=== PATIENT | female | born 1960 | race Caucasian/White ===

== ENCOUNTER 2017-07-30 11:06 | Emergency (ER) | payer BC ==
[~2017-07-30] VITALS: Ht 157.5 cm; Wt 79.9 kg
[2017-07-30 11:18] VITALS: TEMP 36.7; Ht 157.5 cm; Wt 79.9 kg
[2017-07-30] MEDS ORDERED: KETOROLAC TROMETHAMINE 30 MG/ML VIAL IV STA (11:37)
[2017-07-30 12:05] VITALS: O2SAT 98
--- NOTE | 2017-07-30 12:16 | DIAGNOSTIC IMAGING REPORT ---
CHEST ONE VIEW PORTABLE HISTORY: Atypical CHEST PAIN COMPARISON: Chest 08/22/2008. FINDINGS: Increased markings at the lung bases may represent vascular crowding from the low lung volumes. Otherwise, the lungs are clear. The heart is normal in size. No pleural effusions. No pneumothorax. IMPRESSION: No acute process. Electronically signed by: Shawn Julian M.D. 07/30/2017 12:14 PM Dictated Date/Time: 07/30/2017 12:13 PM
--- NOTE | 2017-07-30 12:25 | EMERGENCY ROOM VISIT NOTE ---
History Report prepared by Atilio: Km Yun Under the Supervision of: Dr. Rashaun Tobias M.D. First contact with patient: 11:33 Chief Complaint: CHEST PAIN Stated Complaint: LEFT SIDE PAIN Nursing Triage Summary: Pt presents with daughter who is translating. Pain in chest, left shoulder, neck with sob that started yesterday. Denies n/v. Generalized weakness. Denies cardiac hx. Pain is constant, but varies in intesity. History of Present Illness The patient is a 57 year old female who presents to the Emergency Room with her daughter who is translating with complaints of constant waxing and waning left sided chest pain that started yesterday afternoon. The patient describes the pain as a pressure, and she has some left shoulder pain and shortness of breath. The daughter states that the pain did not come on with any specific activity. She states that she has had similar problems in the past, though they have never found anything. The last time she had chest pain was two months ago, and it came on with weather changes. The patient took Tylenol this morning, and she states that nothing helps with the pain. The patient denies any cough, congestion, diarrhea, nausea, and vomiting. The patient has a family history of hypertension and cancer. The patient has no history of hypertension, cancer, diabetes, smoking, blood clots, recent stress, depression, and anxiety. There is no family history of early cardiac problems. 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 Source of History: patient, family Onset: yesterday afternoon Position: chest Quality: pressure Timing: constant Associated Symptoms: + SOB, No cough, No nausea, No vomiting, No diarrhea Note: Associated symptoms: Left shoulder pain. Review of Systems See HPI for pertinent positives and negatives. A total of ten systems were reviewed and were otherwise negative. Family History Cancer Hypertension Social History Smoking Status: Never Smoker Marital Status: Housing Status: lives with family Occupation Status: employed Current/Historical Medications Scheduled PRN Ibuprofen Tab (Motrin), 800 MG PO Q8H PRN for Pain Allergies Coded Allergies: No Known Allergies (Verified , 07/30/17) Physical Exam Vital Signs Date Time Temp Pulse Resp B/P (MAP) Pulse Ox O2 Delivery O2 Flow Rate FiO2 07/30/17 14:14 62 16 103/63 98 07/30/17 13:35 52 15 106/72 97 Room Air 1/24/18 12:52 52 12 127/78 98 Room Air 07/30/17 12:11 56 07/30/17 12:05 55 15 132/75 98 Room Air 07/30/17 12:05 98 Room Air 07/30/17 11:18 36.7 58 18 126/79 98 Room Air Physical Exam GENERAL: Awake, alert, anxious-appearing, in no distress HENT: Normocephalic, atraumatic. Oropharynx unremarkable. EYES: Normal conjunctiva. Sclera non-icteric. NECK: Supple. No nuchal rigidity. FROM. No JVD. RESPIRATORY: Clear to auscultation. CARDIAC: Regular rate, normal rhythm. Extremities warm and well perfused. Pulses equal. ABDOMEN: Soft, non-distended. No tenderness to palpation. No rebound or guarding. No masses. RECTAL: Deferred. MUSCULOSKELETAL: Mild reproducible tenderness along the sternum. The back is symmetrical on inspection without obvious abnormality. There is no CVA tenderness to palpation. No joint edema. LOWER EXTREMITIES: Calves are equal size bilaterally and non-tender. No edema. No discoloration. NEURO: Normal sensorium. No sensory or motor deficits noted. SKIN: No rash or jaundice noted. Medical Decision & Procedures ER Provider Diagnostic Interpretation: Radiology results as stated below per my review and radiologist interpretation: CHEST ONE VIEW PORTABLE HISTORY: Atypical CHEST PAIN COMPARISON: Chest 08/22/2008. FINDINGS: Increased markings at the lung bases may represent vascular crowding from the low lung volumes. Otherwise, the lungs are clear. The heart is normal in size. No pleural effusions. No pneumothorax. IMPRESSION: No acute process. Electronically signed by: Shawn Julian M.D. 07/30/2017 12:14 PM Dictated Date/Time: 07/30/2017 12:13 PM Laboratory Results 07/30/17 12:21 Red Blood Count 4.39, Mean Corpuscular Volume 89.1, Mean Corpuscular Hemoglobin 30.5, Mean Corpuscular Hemoglobin Concent 34.3, Mean Platelet Volume 8.5, Neutrophils (%) (Auto) 60.5, Lymphocytes (%) (Auto) 30.3, Monocytes (%) (Auto) 6.4, Eosinophils (%) (Auto) 2.2, Basophils (%) (Auto) 0.5, Neutrophils # (Auto) 4.47, Lymphocytes # (Auto) 2.24, Monocytes # (Auto) 0.47, Eosinophils # (Auto) 0.16, Basophils # (Auto) 0.04 07/30/17 12:21 Test 07/30/17 12:21 White Blood Count 7.39 K/uL (4.8-10.8) Red Blood Count 4.39 M/uL (4.2-5.4) Hemoglobin 13.4 g/dL (12.0-16.0) Hematocrit 39.1 % (37-47) Mean Corpuscular Volume 89.1 fL (80-100) Mean Corpuscular Hemoglobin 30.5 pg (25-34) Mean Corpuscular Hemoglobin Concent 34.3 g/dl (32-36) Platelet Count 263 K/uL (130-400) Mean Platelet Volume 8.5 fL (7.4-10.4) Neutrophils (%) (Auto) 60.5 % Lymphocytes (%) (Auto) 30.3 % Monocytes (%) (Auto) 6.4 % Eosinophils (%) (Auto) 2.2 % Basophils (%) (Auto) 0.5 % Neutrophils # (Auto) 4.47 K/uL (1.4-6.5) Lymphocytes # (Auto) 2.24 K/uL (1.2-3.4) Monocytes # (Auto) 0.47 K/uL (0.11-0.59) Eosinophils # (Auto) 0.16 K/uL (0-0.5) Basophils # (Auto) 0.04 K/uL (0-0.2) RDW Standard Deviation 45.1 fL (36.4-46.3) RDW Coefficient of Variation 13.7 % (11.5-14.5) Immature Granulocyte % (Auto) 0.1 % Immature Granulocyte # (Auto) 0.01 K/uL (0.00-0.02) Anion Gap 7.0 mmol/L (3-11) Est Creatinine Clear Calc Drug Dose 76.0 ml/min Estimated GFR () 95.6 Estimated GFR (Non- 82.5 BUN/Creatinine Ratio 23.6 (10-20) Calcium Level 9.0 mg/dl (8.5-10.1) Total Bilirubin 0.8 mg/dl (0.2-1) Direct Bilirubin 0.2 mg/dl (0-0.2) Aspartate Amino Transf (AST/SGOT) 14 U/L (15-37) Alanine Aminotransferase (ALT/SGPT) 23 U/L (12-78) Alkaline Phosphatase 89 U/L (45-117) Troponin I < 0.015 ng/ml (0-0.045) Total Protein 7.2 gm/dl (6.4-8.2) Albumin 3.5 gm/dl (3.4-5.0) Lipase 176 U/L (73-393) Laboratory results reviewed by me Medications Administered Medications (Trade) Dose Ordered Sig/Fermin Route Start Time Stop Time Status Last Admin Dose Admin Ketorolac Tromethamine (Toradol Inj) 15 mg NOW STAT IV 07/30/17 11:37 07/30/17 11:42 DC 07/30/17 11:50 15 MG ECG Indication: chest pain Rate (beats per minute): 54 Rhythm: sinus bradycardia Findings: no acute ischemic change, other (Normal axis) Change: Patient's EKG interpreted by me ED Course 1133: The patient was evaluated in room C7. A complete history and physical exam was performed. 1340: I reevaluated the patient. Discussed results and discharge instructions: she verbalized understanding and agreement. The patient is ready for discharge. Medical Decision I reviewed the patient's past medical history, medications, and the nursing notes as described above. Differential diagnosis: Etiologies such as cardiac ischemia, aortic dissection, pulmonary embolism, pneumonia, pneumothorax, musculoskeletal, infections, pericarditis, myocarditis , esophageal rupture, gastrointestinal, as well as others were entertained. The patient is a 57 y/o woman who presents to the emergency department with constant CP x 1 week per HPI. On arrival the patient is in NAD, AFVSS. EKG unremarkable. Troponin negative in the setting of constant sx. CXR negative. No tachycardia or hypoxia making PE not likely. Moreover, reproducibility with palpation of CW suggests likely muscular/costochondritis, particularly in the setting of patient's work, which is cleaning houses. Patient did feel some improvement with toradol, which further supports costochondritis. Otherwise, patient's heart score is 1, low risk, and thus sx unlikely to be cardiac. Findings and plan for follow-up reviewed with patient. Patient agreeable and d/c 'd per discharge instructions. Medication Reconcilliation Current Medication List: was personally reviewed by me Blood Pressure Screening Patient's blood pressure: Normal blood pressure Impression Primary Impression: Chest wall pain Additional Impression: Costochondritis Scribe Attestation The scribe's documentation has been prepared under my direction and personally reviewed by me in its entirety. I confirm that the note above accurately reflects all work, treatment, procedures, and medical decision making performed by me. Departure Information Dispostion Home / Self-Care Prescriptions Ibuprofen Tab (MOTRIN) 800 Mg Tab 800 MG PO Q8H Y for Pain, #21 TAB Prov: Rashaun Tobias M.D. 07/30/17 Referrals RV. Felipe MD (PCP) Forms Call Back Authorization, HOME CARE DOCUMENTATION FORM, IMPORTANT VISIT INFORMATION Patient Instructions ED Chest Pain Costochondritis, [facility] Additional Instructions Please follow up with your primary care physician in the next 1-3 days for re- evaluation. Your symptoms are most likely due to muscular chest wall pain/strain. Otherwise, your exam, EKG, chest xray, and lab results did not show signs of an emergent condition at this time. Acetaminophen or ibuprofen for pain and fevers as needed. Drink plenty of fluids to ensure hydration. Return to the emergency department for worsening symptoms as described in the accompanying instructions. Problem Qualifiers
[2017-07-30 12:34] LABS: BASO % 0.5 %; BASO ABS # 0.04 K/uL (0-0.2); EOS % 2.2 %; EOS ABS # 0.16 K/uL (0-0.5); HEMATOCRIT 39.1 % (37-47); HEMOGLOBIN 13.4 g/dL (12.0-16.0); IG# 0.01 K/uL (0.00-0.02); LYMPH % 30.3 %; LYMPH ABS # 2.24 K/uL (1.2-3.4); MEAN CELL VOLUME 89.1 fL (80-100); MEAN CORPUSCULAR HEMOGLOBIN 30.5 pg (25-34); MEAN CORPUSCULAR HGB CONC 34.3 g/dl (32-36); MEAN PLATELET VOLUME 8.5 fL (7.4-10.4); MONO % 6.4 %; MONO ABS # 0.47 K/uL (0.11-0.59); NEUT % 60.5 %; NEUT ABS # 4.47 K/uL (1.4-6.5); PLATELET COUNT 263 K/uL (130-400); RED CELL DISTRIBUTION WIDTH CV 13.7 % (11.5-14.5); RED CELL DISTRIBUTION WIDTH SD 45.1 fL (36.4-46.3); WHITE BLOOD COUNT 7.39 K/uL (4.8-10.8)
[2017-07-30 12:52] LABS: ALBUMIN 3.5 gm/dl (3.4-5.0); ALT/SGPT 23 U/L (12-78); BLOOD UREA NITROGEN 19 mg/dl (7-18); CARBON DIOXIDE 25 mmol/L (21-32); CREATININE 0.79 mg/dl (0.60-1.20); GLUCOSE 88 mg/dl (70-99); LIPASE 176 U/L (73-393); POTASSIUM 3.7 mmol/L (3.5-5.1); SODIUM 140 mmol/L (136-145)
[2017-07-30 12:57] LABS: ALKALINE PHOSPHATASE 89 U/L (45-117); AST/SGOT 14 U/L (15-37); TOTAL PROTEIN 7.2 gm/dl (6.4-8.2)
[2017-07-30] MEDS ORDERED: IBUP-1451 PO (13:57)
[2017-07-30 14:14] VITALS: BP 103/63; PULSE 62; O2SAT 98
== END 2017-07-30 14:15 | disposition home or self-care (01) ==
LOC: C.EDB 11:10 → C.EDC 14:15
DX: M94.0 Chondrocostal junction syndrome [Tietze] (principal); Z82.49 Family history of ischemic heart disease and other diseases of the circulatory system; Z80.9 Family history of malignant neoplasm, unspecified

== ENCOUNTER 2018-08-10 12:41 | Observation (INO) ==
[2018-08-10] MEDS ORDERED: SODIUM CHLORIDE 0.9% 1000ML 1,000 ML IV ONE (13:48)
[2018-08-10] MEDS ORDERED: MoRPHine SULFATE 4 MG/ML 1 ML CARP\\VIAL IV STA (13:48)
[2018-08-10] MEDS ORDERED: ONDANSETRON INJ 2 MG/ML 2 ML VIAL IV STA (13:48)
[2018-08-10 14:03] LABS: Basophils # (auto) 0.01 K/uL (0-0.2); Basophils % (auto) 0.1 %; Hematocrit (blood only) 41.1 % (37-47); Hemoglobin 13.8 g/dL (12.0-16.0); Immature Granulocytes # (auto) 0.04 K/uL (0.00-0.02); Immature Granulocytes % (auto) 0.3 %; Lymphocytes # (auto) 1.04 K/uL (1.2-3.4); Lymphocytes % (auto) 7.9 %; Mean Corpuscular Hgb Conc 33.6 g/dL (32-36); Mean Corpuscular Volume 89.5 fL (80-100); Mean Platelet Volume 8.9 fL (7.4-10.4); Monocytes # (auto) 0.22 K/uL (0.11-0.59); Monocytes % (auto) 1.7 %; Neutrophils # (auto) 11.79 K/uL (1.4-6.5); Platelet Count 325 K/uL (130-400); RDW Coefficient of Variation 13.6 % (11.5-14.5); RDW Standard Deviation 44.6 fL (36.4-46.3); Red Blood Count 4.59 M/uL (4.2-5.4)
[2018-08-10 14:14] LABS: Albumin Level 4.2 gm/dl (3.4-5.0); BUN Creatinine Ratio 37.3 (10-20); Calcium 9.4 mg/dl (8.5-10.1); Est GFR (African American) 99.5; Est GFR (Non-African American) 85.9; Potassium 3.5 mmol/L (3.5-5.1)
[2018-08-10 14:15] LABS: Bilirubin,Total 0.8 mg/dl (0.2-1); Globulin 4.2 gm/dl (2.5-4.0); Total Protein 8.4 gm/dl (6.4-8.2)
--- NOTE | 2018-08-10 14:15 | XRay Report ---
KUB CLINICAL HISTORY: Generalized abdominal pain. Nausea and vomiting. FINDINGS: 2 AP supine abdominal radiographs are correlated with abdominal CT dated 09/13/2008. There i s a nonobstructed abdominal bowel gas pattern. Moderate colonic fecal retention is observed. No evide nce of intraperitoneal free air is seen. There are no abnormal abdominal calcifications. A small phle bolith is noted in the pelvis. The bony structures appear intact. IMPRESSION: Nonobstructed abdominal bowel gas pattern noting moderate constipation. Electronically signed by: Vj Mishra M.D. 08/10/2018 2:14 PM
[2018-08-10 14:46] LABS: Appearance Urine Turbid (Clear); Bacteria Urine Automated Negative (Negative); Bilirubin Urine Negative (Negative); Color Urine Dark Yellow; Glucose Urine UA Negative (Negative); Ketones Urine 2+ (Negative); Leukocyte Esterase Urine Negative (Negative); Nitrite Urine Negative (Negative); Protein Urine Negative (Negative); Specific Gravity Urine 1.034 (1.000-1.030); Urobilinogen Urine Negative (Negative); WBC Urine Automated 0 /hpf (0-5)
--- NOTE | 2018-08-10 14:50 | Emergency Department Note ---
History of Present Illness General Chief complaint: Abdominal Pain Stated complaint: SHARP PAIN IN STOMACH, VOMITING Time Seen by Provider: 08/10/18 13:38 History of Present Illness Maximum Pain Intensity: 9 This patient is a pleasant 58-year-old female who presents to the emergency department with complaints of epigastric abdominal pain and vomiting that started last night. The pain has been constant. It is worse with movement. She says that it is sharp and stabbing in nature. She tried ibuprofen with minimal relief. She denies any hematemesis or coffee-ground emesis. Bowel movements were reportedly normal this morning. She did feel feverish this morning. She did not take her temperature. The patient has had a similar pain intermittently in the past, however it has not been this severe. Home Medications Home Medications Medication Instructions Recorded Confirmed Type ibuprofen 200 mg PO QID PRN 08/10/18 08/10/18 History hydrocodone-acetaminophen [[place]] 1 - 2 tab PO Q6H PRN 3 Days #20 tab 08/11/18 Rx Allergies Allergy/AdvReac Type Severity Reaction Status Date / Time No Known Allergies Allergy Verified 08/10/18 14:24 Past Med/Surg History Medical History No pertinent past medical history Surgical History S/P colonoscopy Social History Current Living Situation: Family Other Information That Helps Us Care for You: No Feels Safe at Home: Yes Safety Concerns: Feels Safe At This Time Smoking Status: Never smoker Hx Alcohol Use: No Hx Substance Use: No Beliefs That Will Affect Care: Rastafarian Communication Ability: Effective Health Promotion Manager Required: No Review of Systems A total of 10 systems reviewed and were otherwise negative Physical Exam Vital Signs Vital Signs - 24 hr 08/10/18 17:45 08/10/18 17:52 08/10/18 18:00 Temperature 36.4 C L 36.6 C Temperature Source Oral Temporal Artery Scan Pulse Rate [Apical] 75 60 Pulse Rate [Right Finger] 55 L Pulse Rhythm [Apical] Regular Regular Pulse Rhythm [Right Finger] Pulse Strength [Right Finger] Respiratory Rate 14 16 16 Respiratory Effort / Characteristics Non-Labored Spontaneous Non-Labored Non-Labored Respiratory Depth Normal Normal Normal Respiratory Pattern Regular Regular Regular Blood Pressure [Left Arm] 125/80 158/86 H 174/74 H Blood Pressure [Right Arm] Blood Pressure Mean [Left Arm] 95 110 107 Blood Pressure Mean [Right Arm] Blood Pressure Position [Left Arm] Lying Lying Lying Blood Pressure Position [Right Arm] Pulse Oximetry 95 96 95 Oxygen Delivery Method Room Air Oxymask Oxymask Oxygen Flow Rate 10 10 08/10/18 18:10 08/10/18 18:20 08/10/18 19:10 Temperature 36.5 C 36.6 C Temperature Source Temporal Artery Scan Oral Pulse Rate [Apical] 55 L 58 L Pulse Rate [Right Finger] 55 L Pulse Rhythm [Apical] Regular Regular Pulse Rhythm [Right Finger] Regular Pulse Strength [Right Finger] Normal Respiratory Rate 16 16 16 Respiratory Effort / Characteristics Non-Labored Non-Labored Non-Labored Respiratory Depth Normal Normal Normal Respiratory Pattern Regular Regular Regular Blood Pressure [Left Arm] 139/82 137/79 112/68 Blood Pressure [Right Arm] Blood Pressure Mean [Left Arm] 101 98 82 Blood Pressure Mean [Right Arm] Blood Pressure Position [Left Arm] Lying Lying Lying Blood Pressure Position [Right Arm] Pulse Oximetry 97 97 92 Oxygen Delivery Method Oxymask Room Air Room Air Oxygen Flow Rate 5 08/10/18 19:48 08/10/18 20:50 08/10/18 21:57 Temperature 36.8 C 36.8 C 36.9 C Temperature Source Oral Oral Oral Pulse Rate [Apical] Pulse Rate [Right Finger] 60 73 75 Pulse Rhythm [Apical] Pulse Rhythm [Right Finger] Regular Regular Regular Pulse Strength [Right Finger] Normal Normal Normal Respiratory Rate 18 18 18 Respiratory Effort / Characteristics Non-Labored Non-Labored Non-Labored Respiratory Depth Normal Normal Normal Respiratory Pattern Regular Regular Regular Blood Pressure [Left Arm] 109/71 113/72 109/68 Blood Pressure [Right Arm] Blood Pressure Mean [Left Arm] 83 85 81 Blood Pressure Mean [Right Arm] Blood Pressure Position [Left Arm] Lying Lying Lying Blood Pressure Position [Right Arm] Pulse Oximetry 93 93 93 Oxygen Delivery Method Room Air Room Air Room Air Oxygen Flow Rate 08/10/18 23:05 08/11/18 04:02 08/11/18 07:11 Temperature 37 C 37 C 36.8 C Temperature Source Oral Oral Oral Pulse Rate [Apical] Pulse Rate [Right Finger] 76 63 66 Pulse Rhythm [Apical] Pulse Rhythm [Right Finger] Pulse Strength [Right Finger] Respiratory Rate 16 16 16 Respiratory Effort / Characteristics Non-Labored Respiratory Depth Normal Respiratory Pattern Regular Blood Pressure [Left Arm] 102/64 Blood Pressure [Right Arm] 108/68 114/67 Blood Pressure Mean [Left Arm] 76 Blood Pressure Mean [Right Arm] 81 82 Blood Pressure Position [Left Arm] Lying Blood Pressure Position [Right Arm] Lying Lying Pulse Oximetry 94 95 95 Oxygen Delivery Method Room Air Room Air Room Air Oxygen Flow Rate 08/11/18 07:35 08/11/18 11:37 08/11/18 13:32 Temperature 36.8 C 36.8 C Temperature Source Oral Pulse Rate [Apical] Pulse Rate [Right Finger] 57 L 57 L Pulse Rhythm [Apical] Pulse Rhythm [Right Finger] Pulse Strength [Right Finger] Respiratory Rate 18 18 Respiratory Effort / Characteristics Non-Labored Non-Labored Respiratory Depth Normal Normal Respiratory Pattern Regular Regular Blood Pressure [Left Arm] 102/64 Blood Pressure [Right Arm] 101/65 101/65 Blood Pressure Mean [Left Arm] Blood Pressure Mean [Right Arm] 77 Blood Pressure Position [Left Arm] Blood Pressure Position [Right Arm] Lying Pulse Oximetry 96 96 Oxygen Delivery Method Room Air Oxygen Flow Rate Constitutional WD/WN, vitals as above Eyes EOM intact bilaterally ENMT Oral mucosa slightly dry Neck trachea midline Respiratory normal respiratory effort, lungs clear to auscultation Cardiovascular RRR, no murmur, no edema Gastrointestinal (Abdomen) Bowel sounds hypoactive. Tenderness to palpation particularly in the right upper quadrant and to a lesser extent the epigastric region. No guarding or rebound tenderness. Musculoskeletal no cyanosis or clubbing, extremities motor strength 5/5 Skin no rashes, warm and dry Neurologic Alert and oriented x3. No focal motor deficits. Psychiatric Acting appropriately Course Patient was seen and examined Vital signs including blood pressure were reviewed medications list was verified with patient Labs were obtained, and a saline lock was established Morphine 4 mg IV and Zofran 4 mg IV ordered. The patient was hydrated with a 1 L normal saline bolus Imaging was performed and reviewed Upon reevaluation, the patient said that her pain and nausea were the same. The patient had not yet been medicated. Her workup was reviewed. These findings were discussed with the patient and the patient's daughter. They were then discussed with surgery who personally evaluated the patient at the bedside. Zosyn 4.5 g IV ordered The patient proceeded directly to the OR from the emergency department. Vital signs remained stable. Consultations Consultation #1: Dr. Serrano-gen surgery Administered Medications Discontinued Medications Hydrocodone Bitart/Acetaminophen ([place] 5/325) 2 tab PO Q4H PRN PRN Reason: MODERATE Pain (Scale 4,5,6) Stop: 08/24/18 18:39 Last Admin: 08/11/18 09:59 Dose: 2 tab Admin: 08/10/18 22:04 Dose: 2 tab Bupivacaine HCl/Epinephrine Bitart (Sensorcaine/Epinephrine 0.5% Mpf 1:200,000) Confirm Administered Dose 30 ml .ROUTE .STK-MED ONE Stop: 08/10/18 16:10 Last Admin: 08/10/18 17:44 Dose: 12 ml Sodium Chloride (Nss 1000ml) 1,000 mls @ 999 mls/hr IV .Q1H1M ONE Stop: 08/10/18 14:48 Last Infusion: 08/10/18 16:42 Dose: 0 mls/hr Admin: 08/10/18 15:21 Dose: 999 mls/hr Lactated Ringer's (Lr) 1,000 mls @ 100 mls/hr IV .Q10H TEODORA Stop: 09/09/18 18:39 Last Admin: 08/11/18 05:30 Dose: 100 mls/hr Infusion: 08/11/18 05:30 Dose: 100 mls/hr Infusion: 08/11/18 05:01 Dose: 100 mls/hr Admin: 08/10/18 20:56 Dose: 100 mls/hr Morphine Sulfate (Morphine Sulfate) 4 mg IV NOW STA Stop: 08/10/18 13:49 Last Admin: 08/10/18 15:20 Dose: 4 mg Ondansetron HCl (Zofran) 4 mg IV NOW STA Stop: 08/10/18 13:49 Last Admin: 08/10/18 15:20 Dose: 4 mg Medical Decision Making Medical Records Attestation: I reviewed the patient's medical records. Laboratory Data Attestation: I reviewed the patient's lab results. Result diagrams: 08/10/18 13:40 08/10/18 13:40 Lab Results 08/10/18 08/10/18 08/10/18 Range/Units 13:35 13:40 13:40 WBC 13.10 H (4.8-10.8) K/uL RBC 4.59 (4.2-5.4) M/uL Hgb 13.8 (12.0-16.0) g/dL Hct 41.1 (37-47) % MCV 89.5 (80-100) fL MCH 30.1 (25-34) pg MCHC 33.6 (32-36) g/dL RDW Std Deviation 44.6 (36.4-46.3) fL RDW Coeff of Miguelina 13.6 (11.5-14.5) % Plt Count 325 (130-400) K/uL MPV 8.9 (7.4-10.4) fL Immature Gran % (Auto) 0.3 % Neut % (Auto) 90.0 % Lymph % (Auto) 7.9 % [place] % (Auto) 1.7 % Eos % (Auto) 0.0 % Baso % (Auto) 0.1 % Immature Gran # (Auto) 0.04 H (0.00-0.02) K/uL Neut # (Auto) 11.79 H (1.4-6.5) K/uL Lymph # (Auto) 1.04 L (1.2-3.4) K/uL [place] # (Auto) 0.22 (0.11-0.59) K/uL Eos # (Auto) 0.00 (0-0.5) K/uL Baso # (Auto) 0.01 (0-0.2) K/uL Sodium 137 (136-145) mmol/L Potassium 3.5 (3.5-5.1) mmol/L Chloride 105 (98-107) mmol/L Carbon Dioxide 21 (21-32) mmol/L Anion Gap 11.0 (3-11) BUN 28 H (7-18) mg/dl Creatinine 0.76 (0.6-1.2) mg/dl Est Cr Clr Drug Dosing 81.0 ml/min Est GFR ( Amer) 99.5 Est GFR (Non-Af Amer) 85.9 BUN/Creatinine Ratio 37.3 H (10-20) Glucose 118 H (70-99) mg/dl Calcium 9.4 (8.5-10.1) mg/dl Total Bilirubin 0.8 (0.2-1) mg/dl AST 11 L (15-37) U/L ALT 24 (12-78) U/L Alkaline Phosphatase 106 (45-117) U/L Total Protein 8.4 H (6.4-8.2) gm/dl Albumin 4.2 (3.4-5.0) gm/dl Globulin 4.2 H (2.5-4.0) gm/dl Albumin/Globulin Ratio 1.0 (0.9-2) Lipase 108 (73-393) U/L Urine Color Dark Yellow Urine Appearance Turbid H (Clear) Urine pH 5.0 (4.5-7.5) Ur Specific [place] 1.034 H (1.000-1.030) Urine Protein Negative (Negative) Urine Glucose (UA) Negative (Negative) Urine Ketones 2+ H (Negative) Urine Blood Negative (Negative) Urine Nitrite Negative (Negative) Urine Bilirubin Negative (Negative) Urine Urobilinogen Negative (Negative) Ur Leukocyte Esterase Negative (Negative) Urine WBC (Auto) 0 (0-5) /hpf Urine RBC (Auto) 5-10 H (0-4) /hpf U Hyaline Cast (Auto) 1-5 (0-5) /lpf U Epithel Cells (Auto) 5-10 H (0-5) /lpf Urine Bacteria (Auto) Negative (Negative) Urine Crystals Not Reportable Amorphous Sediment Present H (None Prsent) Imaging Data Attestation: I personally reviewed and interpreted this imaging study as follows : Radiologist's Impression: Gallbladder ultrasound IMPRESSION: 1. Cholelithiasis with minimal gallbladder wall thickening. Positive sonographic Kaiser sign. While not definitive, the findings raise the possibility of acute cholecystitis. A hepatobiliary scan could be obtained as indicated. 2. No biliary ductal dilatation. Electronically signed by: Jake Lozano M.D. 08/10/2018 2:58 PM Dictated: 08/10/18 1456 Transcribed: 08/10/18 1456 KUB IMPRESSION: Nonobstructed abdominal bowel gas pattern noting moderate constipation. Electronically signed by: Vj Mishra M.D. 08/10/2018 2:14 PM Dictated: 08/10/18 1413 Transcribed: 08/10/18 1413 Blood Pressure Blood Pressure Findings: Normal blood pressure MDM Narrative DIFFERENTIAL DIAGNOSIS: Choledocholithiasis, gastritis, cholecystitis, cholangitis, biliary colic, pancreatitis, viral GI syndrome, among others This patient is a pleasant 58-year-old female presents to the emergency department with abdominal pain and vomiting as noted above. On exam, she was tender in the right upper quadrant. She also appeared dehydrated. Labs reveal leukocytosis. LFTs and lipase were normal. An ultrasound was concerning for cholecystitis, which fits her clinical picture. Surgery was consulted and kindly evaluated the patient at the bedside. She will Proceed to the OR for surgical intervention. Impression & Plan Acute cholecystitis Discharge Plan Visit Data *Final* Discharge Date/Time: 08/10/18 16:04 Chief Complaint: Abdominal Pain Stated Complaint: SHARP PAIN IN STOMACH, VOMITING ED Provider: Vj Antoine ED Midlevel Provider: Mally Daly Discharge Problem: Acute cholecystitis Patient Disposition: Admitted As Inpatient Condition: Fair Discharge Instructions Interventions: ED Discharge Assessment Last Done: 08/10/18 16:04
--- NOTE | 2018-08-10 14:59 | Ultrasound Report ---
US gallbladder CLINICAL HISTORY: RUQ pain n/v COMPARISON STUDY: CT of the abdomen and pelvis September 13, 2008. FINDINGS: The liver is sonographically normal. There are multiple gallstones within the gallbladder. A sonographic Kaiser sign was reported by the technologist. There is mild gallbladder wall thickening . The wall measures 4 mm in thickness. There is no pericholecystic fluid. There is no biliary ductal dilatation. The pancreatic body is normal. The head and tail are partially obscured by overlying ameya l gas. There is no right hydronephrosis. IMPRESSION: 1. Cholelithiasis with minimal gallbladder wall thickening. Positive sonographic Kaiser sign. While n ot definitive, the findings raise the possibility of acute cholecystitis. A hepatobiliary scan could be obtained as indicated. 2. No biliary ductal dilatation. Electronically signed by: Jake Lozano M.D. 08/10/2018 2:58 PM
[2018-08-10 15:01] LABS: Amorphous Sediment Urine Present (None Prsent)
[2018-08-10] MEDS ORDERED: PIPERACILLIN/TAZOBACTAM 4.5 GM/120 ML BAG IV ONE (15:27)
[2018-08-10] MEDS ORDERED: PIPERACILL/TAZOBAC CONSULT ACTIVE PRN (15:27)
--- NOTE | 2018-08-10 15:35 | History & Physical Report ---
Date of Service August 10, 2018 Assessment & Plan (1) Acute cholecystitis: Recommend laparoscopic cholecystectomy. Given her past symptoms and severity of this attack, she would like to proceed and we will plan for surgery this evening. as above. cholecystitis radiographically and clinically discussed options/risks ( bleeding/infection/bile leak/dvt/pe/mi/cva/injury to another organ etc...) questions answered. will proceed with molly camacho all conversations done via IPAD work order clerk. History of Present Illness Primary Care Provider: Db Felipe MD 58 y/o female with RUQ pain, N/V associated with chills that began last evening after dinner. Has had a few episodes in the past that usually resolve quickly. Her pain is more intense and constant than in the past. No previous abdominal surgery. Allergies Allergy/AdvReac Type Severity Reaction Status Date / Time No Known Allergies Allergy Verified 08/10/18 14:24 Home Medications Home Medications Medication Instructions Recorded Confirmed Type ibuprofen 200 mg PO QID PRN 08/10/18 08/10/18 History Past Med/Surg History Medical History No pertinent past medical history Social History Feels Safe at Home: Yes Smoking Status: Never smoker Review of Systems Constitutional: + fever and + chills Respiratory: no cough and no dyspnea Cardiovascular: no chest pain and no chest pain with activity Gastrointestinal: + abdominal pain, + nausea and + vomiting Physical Exam 2 Vital Signs (Past 24 Hours): Last Vital Signs Temp 36.4 C L 08/10/18 12:48 Pulse 58 L 08/10/18 15:22 Resp 18 08/10/18 15:22 BP 140/76 08/10/18 15:22 Pulse Ox 98 08/10/18 15:22 Constitutional: WD/WN, vitals as above Respiratory: normal respiratory effort, lungs clear to auscultation Cardiovascular: RRR, no murmur, no edema Gastrointestinal (Abdomen): Inspection/Auscultation: abdomen not distended Percussion/Palpation: + abdomen tender (RUQ) and abdomen soft Skin: no rashes, warm and dry Results & Data Diagnostic Findings US gallbladder CLINICAL HISTORY: RUQ pain n/v COMPARISON STUDY: CT of the abdomen and pelvis September 13, 2008. FINDINGS: The liver is sonographically normal. There are multiple gallstones within the gallbladder. A sonographic Kaiser sign was reported by the technologist. There is mild gallbladder wall thickening. The wall measures 4 mm in thickness. There is no pericholecystic fluid. There is no biliary ductal dilatation. The pancreatic body is normal. The head and tail are partially obscured by overlying bowel gas. There is no right hydronephrosis. IMPRESSION: 1. Cholelithiasis with minimal gallbladder wall thickening. Positive sonographic Kaiser sign. While not definitive, the findings raise the possibility of acute cholecystitis. A hepatobiliary scan could be obtained as indicated. 2. No biliary ductal dilatation. Electronically signed by: Jake Lozano M.D. 08/10/2018 2:58 PM
--- NOTE | 2018-08-10 16:01 | Anesthesiology Consultation ---
Date of Service August 10, 2018 Assessment & Plan (1) Encounter for pre-operative examination: Chart Review Chart Review: Acceptable Risk for Surgery and Patient NOT seen in Pre Admission Testing Consults Requested none ASA [id number] Proposed Anesthesia Anesthesia Type: General Risk / Benefits Reviewed With: PT / POA / Parent / Guardian, Accepts Plan and Informed Consent Obtained Additional Comments: [place] waxer tender used to obtain PMH and anesthesia consent. All questions were answered. NPO Date Last Intake of Fluids: 08/10/18 Time Last Intake of Fluids: 15:30 Date Last Intake of Solids: 08/09/18 Time Last Intake of Solids: 17:30 History Surgery Operation Date: 08/10/18 12:15 Proposed Procedures p Laparoscopic Cholecystectomy - Vitor Serrano, DO Height/Weight Height: 1.63 m Weight: 78.9 kg Allergies Allergy/AdvReac Type Severity Reaction Status Date / Time No Known Allergies Allergy Verified 08/10/18 14:24 Medications Home Medications Medication Instructions Recorded Confirmed Last Taken ibuprofen 200 mg PO QID PRN 08/10/18 08/10/18 08/10/18 09:30 Past Medical History Medical History No pertinent past medical history Past Surgical History Surgical History S/P colonoscopy Past Anesthesia History No Hx of Anesthesia Complications and No Family Hx of Anesthesia Complications History of PONV No Motion Sickness Screening History of Motion Sickness: No Social History Smoking Status: Never smoker Physical Exam Vital Signs Last Vital Signs Temp 36.4 C L 08/10/18 12:48 Pulse 74 08/10/18 16:04 Resp 18 08/10/18 16:04 BP 109/72 08/10/18 16:04 Pulse Ox 97 08/10/18 16:04 ENMT Mouth: no TMJ abnormality and no TMJ clicking Thyromental Distance: > or= 3.5 Finger Breadths Mallampati Class: II Neck normal visual inspection; neck extension not limited Respiratory Auscultation: lungs clear to auscultation bilaterally Cardiovascular Rate/Rhythm: regular rate and regular rhythm Psychiatric Orientation: alert and oriented x 3 Testing Electrocardiogram Date: 08/10/18 Findings: + NSST changes and + SB @ (59) Laboratory Results 08/10/18 13:40 08/10/18 13:40 Urine Color Dark Yellow 08/10/18 13:35 Urine Appearance Turbid (Clear) H 08/10/18 13:35 Urine pH 5.0 (4.5-7.5) 08/10/18 13:35 Ur Specific [place] 1.034 (1.000-1.030) H 08/10/18 13:35 Urine Protein Negative (Negative) 08/10/18 13:35 Urine Glucose (UA) Negative (Negative) 08/10/18 13:35 Urine Ketones 2+ (Negative) H 08/10/18 13:35 Urine Nitrite Negative (Negative) 08/10/18 13:35 Ur Leukocyte Esterase Negative (Negative) 08/10/18 13:35 Urine WBC (Auto) 0 /hpf (0-5) 08/10/18 13:35 Urine RBC (Auto) 5-10 /hpf (0-4) H 08/10/18 13:35 U Hyaline Cast (Auto) 1-5 /lpf (0-5) 08/10/18 13:35 U Epithel Cells (Auto) 5-10 /lpf (0-5) H 08/10/18 13:35 Urine Bacteria (Auto) Negative (Negative) 08/10/18 13:35
[2018-08-10] MEDS ORDERED: ePHEDrine sulfate 50 MG/ML AMP IV PRN (16:05)
[2018-08-10] MEDS ORDERED: PROMETHAZINE HCL 12.5 MG in SODIUM CHLORIDE 0.9% 50 ML IV PRN (16:05)
[2018-08-10] MEDS ORDERED: fentaNYL citrate 100 MCG/2 ML VIAL IV PRN (16:05)
[2018-08-10] MEDS ORDERED: ATROPINE SULFATE 0.1 MG/ML 10ML SYR IV PRN (16:05)
[2018-08-10] MEDS ORDERED: PHENYLEPHRINE 100MCG/ML 5ML SYR IV PRN (16:05)
[2018-08-10] MEDS ORDERED: HYDROmorphone INJ 1 MG/ML SYRINGE IV PRN (16:05)
[2018-08-10] MEDS ORDERED: ONDANSETRON INJ 2 MG/ML 2 ML VIAL IV PRN ×2 (16:05→18:40)
[2018-08-10] MEDS ORDERED: SUCCINYLCHOLINE CHLORIDE 20 MG/ML 10 ML VIAL ONE (16:06)
[2018-08-10] MEDS ORDERED: DEXAMETHASONE SOD INJ 4 MG/ML VIAL ONE (16:06)
[2018-08-10] MEDS ORDERED: ePHEDrine sulfate 50 MG/ML AMP ONE (16:06)
[2018-08-10] MEDS ORDERED: PHENYLEPHRINE HCL 10 MG/ML VIAL ONE (16:06)
[2018-08-10] MEDS ORDERED: PROPOFOL IV EMULSION 10 MG/ML 20 ML VIAL IV ONE (16:06)
[2018-08-10] MEDS ORDERED: GLYCOPYRROLATE 0.2 MG/ML VIAL ONE (16:06)
[2018-08-10] MEDS ORDERED: NEOSTIGMINE METHYLSULFATE 5 MG/5 ML SYR ONE (16:06)
[2018-08-10] MEDS ORDERED: fentaNYL citrate 100 MCG/2 ML VIAL ONE ×2 (16:06→17:21)
[2018-08-10] MEDS ORDERED: ONDANSETRON INJ 2 MG/ML 2 ML VIAL ONE (16:06)
[2018-08-10] MEDS ORDERED: LIDOCAINE HCL 2% 2 ML VIAL/AMP(20MG/ML) INFIL ONE (16:06)
[2018-08-10] MEDS ORDERED: BUPIVACAINE/EPINEPHRINE 0.5% MPF 1:200,000 30 ML VIAL ONE (16:09)
--- NOTE | 2018-08-10 17:39 | Operative Report ---
Post Operative Report Pre & Post Diagnosis Operation Date: 08/10/18 12:15 Pre-Op Diagnosis: Acute Cholecystitis Post-Op Diagnosis: Acute Cholecystitis Procedure Operation Date: 08/10/18 12:15 Actual Procedures p Laparoscopic Cholecystectomy(Not Applicable) - Vitor Serrano DO Surgeon Vitor Serrano DO Precast Molder adela Montemayor Estimated Blood Loss 20 Findings Consistent with Post-Op Diagnosis Specimens gallbladder Description of Procedure After informed consent was obtained the patient was taken to the operating room and placed in the supine position. After successful intubation the abdomen was sterilely prepped and draped in usual fashion. A periumbilical incision was made with an 11 blade scalpel and carried down through the soft tissue using electrocautery. The anterior rectus fascia was opened using electrocautery and 2 #0 Vicryl stay sutures were placed. The peritoneum was elevated with hemostats and incised under direct vision using Metzenbaum scissors. A finger sweep was performed and a 12 mm Norman trocar was placed. The abdomen was insufflated to 18 mmHg. The laparoscope was inserted and the abdomen was examined in 360. No gross abnormalities were identified. The gallbladder was acutely inflamed. A subxiphoid 5 mm port and 2 right upper quadrant 5 mm ports were placed under direct vision. The patient was placed in a reverse Trendelenburg position and slightly airplaned to the left. The gallbladder was grasped and elevated superiorly and laterally. A [place] dissector was used to take down adhesions around the neck of the gallbladder. The cystic duct was identified and skeletonized. It was clipped twice proximally and once distally and transected using a laparoscopic scissor. In similar fashion the cystic artery was identified and skeletonized clipped and divided. The gallbladder was removed from the gallbladder fossa with electrocautery. There was a very small amount of bile spillage which was immediately suctioned up. It was placed into an Endo Catch bag. Thorough irrigation was performed. At the end of the procedure there was adequate hemostasis and no evidence of any bile leaks. A final look around the abdomen showed no other abnormalities. The gallbladder and trochars were all removed and the abdomen was desufflated. The fascia of the camera port was closed using 0 Vicryl in a [id number] fashion. All the wounds were irrigated and closed using 4-0 Monocryl. Marcaine was injected around them for postoperative analgesia and skin glue used as a dressing. The patient was awaken extubated and transferred to recovery in stable condition. My physician's car rental sales assistant was present throughout the entire case... helped with prepping the patient. With exposure for trocar placement, as well as retracted the gallbladder throughout the case and also assisted with wound closure and dressing placement. I attest to the content of the Intraoperative Record and any orders documented therein. Any exceptions are noted below.
[2018-08-10] MEDS ORDERED: ROCURONIUM BROMIDE 10 MG/ML 5 ML VIAL ONE (18:01)
--- NOTE | 2018-08-10 18:23 | Anesthesiology Progress Note ---
Date of Service August 10, 2018 Anesthesia Post Procedure Vital Signs Vital Signs: Temp Pulse Pulse Pulse Resp BP BP 08/10/18 18:20 36.5 C 58 L 16 137/79 08/10/18 18:10 55 L 16 139/82 08/10/18 18:00 60 16 174/74 H 08/10/18 17:52 36.6 C 75 16 158/86 H 08/10/18 16:25 37.1 C 84 18 08/10/18 16:04 74 18 109/72 08/10/18 15:22 58 L 18 08/10/18 12:48 36.4 C L 66 16 125/73 BP Pulse Ox 08/10/18 18:20 97 08/10/18 18:10 97 08/10/18 18:00 95 08/10/18 17:52 96 08/10/18 16:25 120/72 97 08/10/18 16:04 97 08/10/18 15:22 140/76 98 08/10/18 12:48 99 Pain Intensity Upper Abdomen: Pain Intensity: 5 Notes Mental Status: alert / awake / arousable Patient Amnestic to Procedure: Yes Nausea / Vomiting: adequately controlled Pain: adequately controlled Airway Patency, RR, SpO2: stable & adequate BP & HR: stable & adequate Hydration State: stable & adequate Anesthetic Complications: no major complications apparent
[2018-08-10] MEDS ORDERED: MoRPHine SULFATE 4 MG/ML 1 ML CARP\\VIAL IV PRN (18:40)
[2018-08-10] MEDS: LACTATED RINGER'S 1,000 ML IV SCH (20:56)
[2018-08-10] MEDS: HYDROCODONE/ACETAMOPHEN 5/325MG TAB PO PRN (22:04)
[2018-08-11] MEDS: LACTATED RINGER'S 1,000 ML IV SCH (05:30)
--- NOTE | 2018-08-11 08:10 | Surgery Progress Note ---
Date of Service August 11, 2018 Assessment & Plan (1) Acute cholecystitis: POD #1- s/p Laparoscopic Cholecystectomy Patient doing well- ambulating without issue in room Pain controlled with PO pain medication Tolerating clear liquid diet- patient's diet is ADAT- patient reports that she is hungry and will try regular diet for breakfast. If she continues to do well possible discharge later today. Daughter will be in late morning- early afternoon. Return precautions reviewed. Verbal and written discharge instructions provided. daughter present to translate feeling well/no complaints desi diet pain controlled ok for d/c. instructions given. Subjective Patient doing well this AM- reports some mild right shoulder pain. Right upper quadrant pain has resolved- expected mild to moderate discomfort at incision sites. Physical Exam 2 Vital Signs (Past 24 Hours): Last Vital Signs Temp 36.9 C 08/11/18 07:51 Pulse 60 08/11/18 07:51 Resp 16 08/11/18 07:51 BP 123/72 08/11/18 07:51 Pulse Ox 98 08/11/18 07:51 Gastrointestinal (Abdomen): Inspection/Auscultation: + abdominal surgical incision (Dermabond in place- clean, dry, intact, no signs of infection. ) Percussion/Palpation: + abdomen tender (expected tenderness with palpation at incision sites. ) and abdomen soft
[2018-08-11] MEDS: HYDROCODONE/ACETAMOPHEN 5/325MG TAB PO PRN (09:59)
--- NOTE | 2018-08-11 19:10 | Discharge Summary ---
PRIMARY DISCHARGE DIAGNOSIS: Acute cholecystitis. PROCEDURE PERFORMED: Laparoscopic cholecystectomy. HOSPITAL COURSE: The patient is a 58-year-old female who presented to the Emergency Department with nearly 24 hours of right upper quadrant pain. Her white count was 13,000. Her ultrasound showed cholelithiasis and early acute cholecystitis. She was taken to the operating room that evening for laparoscopic cholecystectomy. The procedure was well tolerated. She was transferred to the floor for overnight observation. On postoperative day #1, she was tolerating diet and oral analgesics. Her abdomen was soft. Incisions were clean and dry. She was stable for discharge. DISCHARGE INSTRUCTIONS: Discharge home. Follow up with Dr. Serrano in 2 weeks. DISCHARGE MEDICATIONS: [place] 1-2 tablets every 4 hours as needed, can continue ibuprofen 200 mg 4 times a day as needed.
== END 2018-08-11 13:55 | disposition home or self-care (01) ==
LOC: ED 12:41 → 3W 16:04 → OR 16:04